=== PATIENT | female | born 1980 | race Caucasian/White ===

== ENCOUNTER → 2018-10-21 | Outpatient (CLI) | payer OTHER ==
[~2018-10-21] MED LIST: FEXO-67 PO; PANT40TA65 PO
[2018-10-21 11:01] LABS: PLATELET COUNT, AUTOMATED 267 K/uL (150-450)
[2018-10-21 11:16] LABS: LDL CHOLESTEROL 71 mg/dl
== END ==
LOC: LAB 10:39
PROVIDERS: ATTEND Internal Medicine
DX: T78.3XXA Angioneurotic edema, initial encounter (principal); K21.9 Gastro-esophageal reflux disease without esophagitis; Z88.9 Allergy status to unspecified drugs, medicaments and biological substances; D64.9 Anemia, unspecified
CPT/HCPCS: 36415; 82040; 82247; 82310; 82374; 82435; 82465; 82565; 82728; 82947; 83540; 83550; 83718; 84075; 84132; 84155; 84295; 84443; 84450; 84460; 84478; 84520; 85025